=== PATIENT | female | born 1960 | race Caucasian/White ===

== ENCOUNTER 2022-03-06 12:28 | Day surgery (SDC) | payer BC ==
[2022-03-06] MEDS ORDERED: Depo-Medrol 40 MG/ML IM ONE (12:29)
[2022-03-06] MEDS ORDERED: BUPIVACAINE 0.5% VIAL IJ ONE (12:29)
[2022-03-06] MEDS ORDERED: Lactated Ringers 1,000 ML IV ONE (14:11)
[2022-03-06] MEDS ORDERED: DIPRIVAN 200 MG/20 ML IV ONE (14:36)
--- NOTE | 2022-03-06 16:21 | XRAY ---
Indication: Bilateral SI joint injection. Intraoperative fluoroscopy provided for 17 seconds. 5 digital spot image submitted for interpretation demonstrates posterior needle tip projecting over the left and right SI joint. Correlate with intraoperative findings/report.
--- NOTE | 2022-03-06 16:30 | XRAY ---
17 seconds of fluoroscopy was used in surgery for a bilateral sacroiliac joint injection.
== END 2022-03-06 15:05 | disposition home or self-care (01) ==
LOC: SDC-PAIN 12:28
PROVIDERS: ATTEND Psychiatry & Neurology Pain Medicine
DX: M46.1 Sacroiliitis, not elsewhere classified (principal); Z79.899 Other long term (current) drug therapy
CPT/HCPCS: 27096; 72202; 77002; J1030; J2704; G0260

== ENCOUNTER 2022-04-17 12:35 | Day surgery (SDC) | payer BC ==
[2022-04-17] MEDS ORDERED: LIDOCAINE HCL 1% 50 MG/5 ML VL PF IJ ONE (12:36)
[2022-04-17] MEDS ORDERED: Depo-Medrol 40 MG/ML IM ONE (12:36)
[2022-04-17] MEDS ORDERED: BUPIVACAINE 0.5% VIAL IJ ONE (12:36)
[2022-04-17] MEDS ORDERED: DIPRIVAN 200 MG/20 ML IV ONE (14:39)
[2022-04-17] MEDS ORDERED: Lactated Ringers 1,000 ML IV ONE (15:28)
--- NOTE | 2022-04-17 16:54 | XRAY ---
Indication: Right hip and right greater trochanter bursa injection. Intraoperative fluoroscopy provided for 29 seconds. 2 digital spot image submitted for interpretation demonstrates needle tip projecting lateral to the right femur neck. Second needle tip lateral to the greater trochanter. Small amount of contrast injected for both needle tip placement. Correlate with intraoperative findings/report.
--- NOTE | 2022-04-18 08:39 | XRAY ---
29 seconds of fluoroscopy was used in surgery for a right intra-articular hip and a right greater trochanteric bursa injection.
== END 2022-04-17 15:10 | disposition home or self-care (01) ==
LOC: SDC-PAIN 12:35
PROVIDERS: ATTEND Psychiatry & Neurology Pain Medicine
DX: M16.11 Unilateral primary osteoarthritis, right hip (principal); M70.61 Trochanteric bursitis, right hip; Z79.899 Other long term (current) drug therapy
CPT/HCPCS: 20610; 73502; 77002; J1030; J2001; J2704; Q9966

== ENCOUNTER 2022-06-05 11:59 | Day surgery (SDC) | payer BC ==
[2022-06-05] MEDS ORDERED: LIDOCAINE HCL 2% 100 MG/5 ML IJ ONE (12:00)
[2022-06-05] MEDS ORDERED: DIPRIVAN 200 MG/20 ML IV ONE (13:36)
[2022-06-05] MEDS ORDERED: Lactated Ringers 1,000 ML IV ONE (14:22)
--- NOTE | 2022-06-05 14:28 | XRAY ---
Indication: Bilateral L4-S1 MBB. Intraoperative fluoroscopy provider 14 seconds. Single digital spot image submitted for interpretation demonstrates posterior needle tips projecting over the expected left and right L4-S1 nerve roots. Correlate with intraoperative findings/report.
--- NOTE | 2022-06-05 15:12 | XRAY ---
14 seconds of fluoroscopy was used in surgery for a bilateral L4-S1 MBB.
== END 2022-06-05 14:10 | disposition home or self-care (01) ==
LOC: SDC-PAIN 11:59
PROVIDERS: ATTEND Psychiatry & Neurology Pain Medicine
DX: M47.816 Spondylosis without myelopathy or radiculopathy, lumbar region (principal); Z79.899 Other long term (current) drug therapy
CPT/HCPCS: 64493; 64494; 72020; 77002; J2704

== ENCOUNTER 2022-07-17 11:54 | Day surgery (SDC) | payer BC ==
[2022-07-17] MEDS ORDERED: BUPIVACAINE 0.5% VIAL IJ ONE (11:55)
[2022-07-17] MEDS ORDERED: DIPRIVAN 200 MG/20 ML IV ONE (13:29)
--- NOTE | 2022-07-17 14:51 | XRAY ---
Indication: Bilateral L4-S1 MBB. Intraoperative fluoroscopy provided for 14 seconds. Single digital spot image submitted for interpretation demonstrates posterior needle tips projecting over the expected left and right L4-S1 nerve roots. Correlate with intraoperative findings/report.
--- NOTE | 2022-07-17 15:05 | XRAY ---
14 seconds of fluoroscopy was used in surgery for a bilateral L4-S1 MBB.
[2022-07-17] MEDS ORDERED: Lactated Ringers 1,000 ML IV ONE (15:20)
== END 2022-07-17 13:55 | disposition home or self-care (01) ==
LOC: SDC-PAIN 11:54
PROVIDERS: ATTEND Psychiatry & Neurology Pain Medicine
DX: M47.816 Spondylosis without myelopathy or radiculopathy, lumbar region (principal); Z79.899 Other long term (current) drug therapy
CPT/HCPCS: 64493; 64494; 72020; 77002; J2704

== ENCOUNTER 2022-09-18 13:43 | Day surgery (SDC) | payer BC ==
[2022-09-18] MEDS ORDERED: Sensorcaine 0.25% 10 ML IJ ONE (13:44)
[2022-09-18] MEDS ORDERED: Depo-Medrol 40 MG/ML IM ONE (13:44)
[2022-09-18] MEDS ORDERED: LIDOCAINE HCL 1% 50 MG/5 ML VL PF IJ ONE (13:44)
[2022-09-18] MEDS ORDERED: DIPRIVAN 200 MG/20 ML IV ONE ×2 (14:57→15:05)
--- NOTE | 2022-09-18 16:47 | XRAY ---
Indication: Left L4-S1 RFA. Intraoperative fluoroscopy provided for 31 seconds. 4 digital spot images submitted for interpretation demonstrates posterior needle tips projecting over the expected left L4-S1 nerve roots. Correlate with intraoperative findings/report.
[2022-09-18] MEDS ORDERED: Lactated Ringers 1,000 ML IV ONE (16:50)
--- NOTE | 2022-09-18 20:14 | XRAY ---
31 seconds of fluoroscopy was used in surgery for a left L4-S1 RFA.
== END 2022-09-18 15:30 | disposition home or self-care (01) ==
LOC: SDC-PAIN 13:43
PROVIDERS: ATTEND Psychiatry & Neurology Pain Medicine
DX: M47.816 Spondylosis without myelopathy or radiculopathy, lumbar region (principal); Z79.899 Other long term (current) drug therapy
CPT/HCPCS: 64635; 64636; 72100; 77002; J1030; J2001; J2704

== ENCOUNTER 2022-09-25 12:13 | Day surgery (SDC) | payer BC ==
[2022-09-25] MEDS ORDERED: BUPIVACAINE 0.5% VIAL IJ ONE (12:14)
[2022-09-25] MEDS ORDERED: Depo-Medrol 40 MG/ML IM ONE (12:14)
[2022-09-25] MEDS ORDERED: LIDOCAINE HCL 1% 50 MG/5 ML VL PF IJ ONE (12:14)
[2022-09-25] MEDS ORDERED: DIPRIVAN 200 MG/20 ML IV ONE ×2 (14:06→14:29)
[2022-09-25] MEDS ORDERED: Lactated Ringers 1,000 ML IV ONE (15:59)
--- NOTE | 2022-09-25 16:33 | XRAY ---
33 seconds of fluoroscopy was used in surgery for a right L4-S1 RFA.
--- NOTE | 2022-09-25 16:37 | XRAY ---
Indication: Right L4-S1 RFA. Intraoperative fluoroscopy provided for 33 seconds. 3 digital spot image submitted for interpretation demonstrates posterior needle tips projecting over the expected right L4-S1 nerve roots. Correlate with intraoperative findings/report.
== END 2022-09-25 14:46 | disposition home or self-care (01) ==
LOC: SDC-PAIN 12:13
PROVIDERS: ATTEND Psychiatry & Neurology Pain Medicine
DX: M47.816 Spondylosis without myelopathy or radiculopathy, lumbar region (principal); Z79.899 Other long term (current) drug therapy
CPT/HCPCS: 64635; 64636; 72100; 77002; J1030; J2001; J2704

== ENCOUNTER 2023-11-26 13:25 | Day surgery (SDC) | payer BC ==
[2023-11-26] MEDS ORDERED: Depo-Medrol 40 MG/ML IM ONE (13:26)
[2023-11-26] MEDS ORDERED: LIDOCAINE HCL 1% AMPUL 5 ML IJ ONE (13:26)
[2023-11-26] MEDS ORDERED: Sodium Chloride 0.9(Preservative Free) 10 ML IJ ONE (13:26)
[2023-11-26] MEDS ORDERED: DIPRIVAN 200 MG/20 ML IV ONE (14:44)
[2023-11-26] MEDS ORDERED: Lactated Ringers 1,000 ML IV ONE (15:10)
--- NOTE | 2023-11-26 16:40 | XRAY ---
Indication: Lumbar BRADLEY. Intraoperative fluoroscopy provided for 23 seconds. 2 digital spot image submitted for interpretation demonstrates posterior needle tip projecting posterior to lumbosacral junction interspace. Small amount of contrast injected for needle tip placement. Correlate with intraoperative findings/report.
--- NOTE | 2023-11-26 16:56 | XRAY ---
23 seconds of fluoroscopy was used in surgery for a lumbar BRADLEY.
== END 2023-11-26 15:28 | disposition home or self-care (01) ==
LOC: SDC-PAIN 13:25
PROVIDERS: ATTEND Psychiatry & Neurology Pain Medicine
DX: M54.16 Radiculopathy, lumbar region (principal)
CPT/HCPCS: 62323; 72100; 77003; J2704; Q9966

== ENCOUNTER 2024-03-11 12:00 | Day surgery (SDC) | payer BC ==
[2024-03-11] MEDS ORDERED: Depo-Medrol 40 MG/ML IM ONE (12:01)
[2024-03-11] MEDS ORDERED: BUPIVACAINE 0.5% VIAL IJ ONE (12:01)
[2024-03-11] MEDS ORDERED: propofoL IV ONE (12:51)
--- NOTE | 2024-03-11 13:42 | XRAY ---
Indication: Bilateral SI joint and greater trochanter bursa injections. Intraoperative fluoroscopy provided for 31 seconds. 4 digital spot image submitted for interpretation demonstrates posterior needle tips projecting over left/right SI joints. Additional needle tips lateral to left/right greater trochanters. Small amount of contrast injected for all needle tip placement. Correlate with intraoperative findings/report.
--- NOTE | 2024-03-11 14:04 | XRAY ---
31 seconds of fluoroscopy was used in surgery for a bilateral sacroiliac joint and greater trochanteric bursa injection.
== END 2024-03-11 13:23 | disposition home or self-care (01) ==
LOC: SDC-PAIN 12:00
PROVIDERS: ATTEND Psychiatry & Neurology Pain Medicine
DX: M46.1 Sacroiliitis, not elsewhere classified (principal); M70.62 Trochanteric bursitis, left hip; M70.61 Trochanteric bursitis, right hip
CPT/HCPCS: 20610; 27096; 73521; 77002; J2704; Q9966

== ENCOUNTER 2024-11-10 14:56 | Day surgery (SDC) | payer BC ==
[2024-11-10] MEDS ORDERED: LIDOCAINE HCL 1% 50 MG/5 ML VL IJ ONE (14:57)
[2024-11-10] MEDS ORDERED: methylPREDNISolone acetate IM ONE (14:57)
[2024-11-10] MEDS ORDERED: BUPIVACAINE 0.5% VIAL IJ ONE (14:57)
--- NOTE | 2024-11-10 19:10 | XRAY ---
Indication: Left knee injection. Intraoperative fluoroscopy provided for 9 seconds. Single digital spot image submitted for interpretation demonstrates needle tip projecting over left femur intercondylar notch. Small amount of contrast injected for needle tip placement. Correlate with intraoperative findings/report.
--- NOTE | 2024-11-11 10:16 | XRAY ---
9 seconds of fluoroscopy used in surgery for a left intra-articular knee injection.
== END 2024-11-10 17:10 | disposition home or self-care (01) ==
LOC: SDC-PAIN 14:56
PROVIDERS: ATTEND Psychiatry & Neurology Pain Medicine
DX: M17.12 Unilateral primary osteoarthritis, left knee (principal)